=== PATIENT | male | born 1970 | race Caucasian/White ===

== ENCOUNTER 2016-11-26 21:47 | Observation (INO) | payer MEDICAID ==
--- NOTE | ~2016-11-26 | HP ---
History And Physical [facility] [address] [facility] [place]. [address] NAME: NANCY KHAN : 72 STATUS : ADM Michelle PAT#: [id number] AGE: 46 ADM/REG DATE : 11/26/16 MR#: [id number] REPORT SERV DATE: 11/27/16 DICTATED BY: DATE: REPORT STATUS : Draft TRANSCRIBED BY: MODL DATE: 11/27/16 DATE OF ADMISSION: 11/26/2016 PRIMARY CARE PROVIDER: He denies having one. He reports he has moved to [place] within the last month. CHIEF COMPLAINT: Chest heaviness after a syncopal episode. HISTORY OF PRESENT ILLNESS: This is a 46-year-old white male with history of FL x2 which he reports was nonobstructive based on two cardiac cath, syncope that has started in the last six months, hypertension, hyperlipidemia, history of drug abuse and alcohol abuse. The patient reports to have had a syncopal event yesterday followed by chest pressure and pain that radiated to his left arm and shoulder. He reports the pain an 8/10. He reports the event lasted about a minute and he felt diaphoretic, nauseous, and short of breath during that time. He does report that he felt his heart racing prior to his syncopal event. He reports that his pain lessened but did not completely resolved until about 1 a.m. while here in the hospital. Currently, he reports mild pressure to his mid chest and mild dizziness, but he denies any chest pain, shortness of breath, palpitations, any orthopnea or edema. The patient denies any personal history of stroke, DVT, or pulmonary embolus. The patient denies any recent fevers or chills. PAST MEDICAL HISTORY: 1. Hypertension. 2. Hyperlipidemia. 3. FL in 2009 and 2011. He reports 40% blockages, no stents needed. 4. Syncopal events in the last six months in which he also develops a headache, has palpitations, and a 30-second dizziness prior to his syncopal event. PAST SURGICAL HISTORY: He reports, 1. Tonsillectomy. 2. 14 knee orthoscopies. 3. Right and left collar bone surgery. 4. Right hand surgery twice. SOCIAL HISTORY: He is a computer software support representative. He is and has one child. He denies any tobacco use. He does report to have drank tequila /5th everyday for 30 years. He quit in 2015 per medical detox. Illicit drug use, he reports he was on different toxic pain pills including Vicodin and came off it on his own in April of 2014, but had used it on and off for 30 years. FAMILY HISTORY: He is adopted and therefore does not know his family history. REVIEW OF SYSTEMS: 14-point review of systems was performed, significant for HPI. No other contributory diagnoses identified. History And Physical [address] [address] NAME: NANCY KHAN : 72 STATUS : ADM Michelle PAT#: [id number] AGE: 46 ADM/REG DATE : 11/26/16 MR#: [id number] REPORT SERV DATE: 11/27/16 DICTATED BY: DATE: REPORT STATUS : Draft TRANSCRIBED BY: STARR DATE: 11/27/16 ALLERGIES: NO KNOWN ALLERGIES. HOME MEDICATIONS: 1. Lisinopril 20 p.o. twice a day. 2. Zocor 40 p.o. at bedtime. 3. Metoprolol tartrate 50 p.o. twice a day. 4. Aspirin 81 mg every morning. 5. Naproxen 220 mg tablet. He takes 440 to 650 mg p.o. daily as needed for arthritis. PHYSICAL EXAMINATION: GENERAL: Cooperative, in no apparent distress. HEENT: Head normocephalic, anicteric. Normal EOM. PERRLA. No xanthelasma. Nares patent. Moist mucous membranes. NECK: Trachea midline. No thyromegaly, JVD or bruits. RESPIRATORY: Diminished lower lobes. Normal respiratory effort. No wheezes, rhonchi or crackles. CARDIOVASCULAR: Diminished heart sounds. No murmur, rub or gallop appreciated. No chest wall tenderness to palpation. ABDOMEN: Soft, nontender, nondistended, normal bowel sounds auscultated throughout. No masses or organomegaly. EXTREMITIES: No peripheral edema. DP/PT and radial pulses palpable bilaterally. No clubbing or cyanosis. SKIN: Warm, dry and intact. Normal turgor. No pallor or cyanosis. NEURO/PSYCH: Alert, oriented x3 with no acute distress. Affect appropriate to current situation. LAB DATA: Sodium 143, potassium 3.7, chloride 108, BUN 17, creatinine 1.15, GFR 89, glucose 156. The patient reports to have eaten at [place] prior to admit. Calcium 9.0, magnesium 2.1. White blood cells 10.5, hemoglobin 14.7, hematocrit 42.3, platelet count 200. INR 1.0. His troponins x3 have been less than 0.02. EKG shows sinus rhythm at 75. shelter monitor shows sinus rhythm at 78. No ectopy or any abnormalities noted. ASSESSMENT AND PLAN: 1. Chest pain. Troponins x3 negative, less than 0.02. He currently denies any chest pain. He did report no obstructive coronary artery disease per two COAs, last one in 2011 at [place], [place]. Denies a history of congestive heart failure. We will keep patient n.p.o. and plan a cardiac PET today. If the stress test is low risk or no ischemia, the patient may be discharged home. The patient will be asked to follow up with his PCP in one week with all studies being sent to that office. The patient reports he does not have a PCP, we will therefore assist him in getting one if he prefers. If anything suggestive of ischemia, Cardiology referral will be initiated. We will obtain records from the patient's backend developer in [place]. 2. History of myocardial infarction x2. Plan as same as above. 3. Syncope and palpitations. The telemetry was reviewed and no events were noted. No need for Holter at this time due to no events here. We will be awaiting records and stress test report. If the stress test is low risk, we will discharge home today and History And Physical [address] [address] NAME: NANCY KHAN : 72 STATUS : ADM Michelle PAT#: [id number] AGE: 46 ADM/REG DATE : 11/26/16 MR#: [id number] REPORT SERV DATE: 11/27/16 DICTATED BY: DATE: REPORT STATUS : Draft TRANSCRIBED BY: MODAmi DATE: 11/27/16 follow up with a PCP of his choice or we will make one if he prefers. 4. Hypertension. It appears stable. We will continue the patient's beta-varun and CAITLYN post stress test. 5. Hyperlipidemia. We will continue his statin. 6. Morbid obesity. BMI of 43.0. 7. History of drug and alcohol abuse. He reports he quit years ago. EKS/MODL Valdo Casas APN / [id number] CC: Lady Gonzalez, MSN, SOFTWARE RELEASE ENGINEER-BC
[2016-11-26 21:37] LABS: BASOPHILS 0.7 %; BASOPHILS ABSOLUTE 0.07 10/3/uL (0.0-0.16); EOSINOPHILS ABSOLUTE 0.63 10/3/uL (0.0-0.53); ER CBC TAT 0 Hrs 08 Mins; HEMATOCRIT 42.3 % (40.0-51.0); HEMOGLOBIN 14.7 g/dL (13.6-17.8); IMMATURE GRANULOCYTES 0.5 %; IMMATURE GRANULOCYTES ABSOLUTE 0.05 10/3/uL (0.0-0.11); LYMPHOCYTES 23.5 %; LYMPHOCYTES ABSOLUTE 2.46 10/3/uL (0.67-4.30); MEAN CORPUS HGB CONC 34.8 g/dL (32.0-36.0); MEAN CORPUSCULAR HEMOGLOB 28.8 pg (26.0-34.0); MEAN CORPUSCULAR VOLUME 82.8 fL (80-100); MONOCYTES 4.5 %; MONOCYTES ABSOLUTE 0.47 10/3/uL (0.21-1.20); NEUTROPHILS 64.8 %; NEUTROPHILS ABSOLUTE 6.77 10/3/uL (2.02-8.40); PLATELET COUNT 200 10/3/uL (150-400); RBC DISTRIBUTION WIDTH 12.1 % (12.0-16.0); RED CELL COUNT 5.11 10/6/uL (4.7-6.1); WHITE BLOOD CELLS 10.5 10/3/uL (4.5-10.5)
[2016-11-26 21:38] LABS: MANUAL DIFF NO %
[2016-11-26 21:48] LABS: PARTIAL THROMBO TIME 26.9 SEC (22.5-37.2); PROTIME (NOT ORD) 13.2 SEC (12.0-14.5)
[2016-11-26 21:54] LABS: BUN (BLOOD UREA NITROGEN) 17 MG/DL (6-23); CHEST PAIN PROFILE TAT 0 Hrs 25 Mins; CHLORIDE, SERUM 108 MMOL/L (96-112); CO2 (CARBON DIOXIDE) 30 MMOL/L (24-34); CREATININE 1.15 MG/DL (0.70-1.30); GFR AFRICAN AMERICAN 89 ML/MIN (>=60); GFR NON AFRICAN AMERICAN 76 ML/MIN (>=60); GLUCOSE, SERUM 156 MG/DL (60-99); POTASSIUM, SERUM 3.7 MMOL/L (3.5-5.3); SODIUM, SERUM 143 MMOL/L (135-148); TROPONIN I <0.02 NG/ML (<0.05)
[2016-11-26] MEDS ORDERED: PRIN20 PO (22:15)
[2016-11-26] MEDS ORDERED: LOP50 PO (22:15)
[2016-11-26] MEDS ORDERED: ZOCOR40 PO (22:15)
[2016-11-26] MEDS ORDERED: ASAB PO (22:15)
[2016-11-26] MEDS ORDERED: ASABAYER PO (22:16)
[2016-11-26] MEDS ORDERED: ALEVE220 MG PO (22:17)
[2016-11-28 05:05] LABS: BUN (BLOOD UREA NITROGEN) 19 MG/DL (6-23); CALCIUM, SERUM 8.7 MG/DL (8.5-10.4); CHLORIDE, SERUM 106 MMOL/L (96-112); CO2 (CARBON DIOXIDE) 27 MMOL/L (24-34); CREATININE 0.92 MG/DL (0.70-1.30); GFR AFRICAN AMERICAN 116 ML/MIN (>=60); GFR NON AFRICAN AMERICAN 100 ML/MIN (>=60); GLUCOSE, SERUM 134 MG/DL (60-99); SODIUM, SERUM 141 MMOL/L (135-148)
[2016-11-28 05:06] LABS: POTASSIUM, SERUM 3.9 MMOL/L (3.5-5.3)
== END 2016-11-28 14:55 | disposition home or self-care (01) ==
LOC: ER 21:47 → CDU1 22:18 → CDU2 23:21
PROVIDERS: Clinical Nurse Specialist; Emergency Medicine
DX: R07.89 Other chest pain (principal); R55 Syncope and collapse; R00.2 Palpitations; I10 Essential (primary) hypertension; E78.5 Hyperlipidemia, unspecified; E66.01 Morbid (severe) obesity due to excess calories; F10.10 Alcohol abuse, uncomplicated; I25.2 Old myocardial infarction; Z68.41 Body mass index [BMI] 40.0-44.9, adult; Z87.898 Personal history of other specified conditions; Z90.89 Acquired absence of other organs; Z98.890 Other specified postprocedural states
CPT/HCPCS: 71010; 78492; 80048; 83735; 84484; 85025; 85610; 85730; 93005; 93017; 96374; 96375; 96376; 99285; A9270-GY; A9555; G0378; J0360; J2405; J2785

== ENCOUNTER 2016-11-30 04:22 | Inpatient (IN) | payer MEDICAID ==
--- NOTE | ~2016-11-30 | ECH ---
Echocardiogram [facility] [address] [place]. [address] NAME: NANCY KHAN : 72 STATUS : ADM IN PAT#: [id number] AGE: 46 ADM/REG DATE : 11/30/16 MR#: [id number] REPORT SERV DATE: 12/02/16 DICTATED BY: MAGALI WALLACE JR. DATE: 12/01/16 REPORT STATUS : Draft TRANSCRIBED BY: STARR DATE: 12/01/16 DATE OF ACQUISITION: 11/30/2016. The bias cutting machine operator was Merritt Aguilar. INDICATIONS: Syncope. 2-D INTERPRETATION: M-mode and 2-dimensional echocardiography were performed. The left atrium was normal in size measuring 3.5 cm compared to an aortic root diameter of 3.5 cm. The left ventricle was in normal size, measuring 4.5 cm in end-diastole and 3 cm in end- systole. Overall, there appeared to be normal left ventricular systolic function without obvious segmental wall motion abnormality with ejection fraction of 50% to 55%. Definity contrast imaging agent was utilized to enhance endocardial borders. 20 mL of agitated sterile saline contrast was injected via the brachial vein, which opacified the right ventricle and right atrium. No flow was seen across the interatrial septum of significance. The aortic valve is trileaflet and the mitral valve appeared to be structurally normal. The remaining cardiac valves appeared to be structurally normal. No obvious pericardial or pleural effusion could be seen. No intracardiac mass could be identified. DOPPLER/COLOR FLOW: Conventional and Doppler color flow imaging were performed. Mitral inflow patterns were abnormal suggestive of grade 2 diastolic dysfunction. There was trace- to-mild mitral insufficiency. There was no tricuspid insufficiency. There was no evidence of aortic stenosis. There was [id number] aortic insufficiency. Neither significant stenosis or insufficiency of the remaining cardiac valves could be visualized. CONCLUSION: NORMAL LEFT VENTRICULAR SYSTOLIC FUNCTION WITH DIASTOLIC DYSFUNCTION GRADE 2, PHYSIOLOGIC TO MILD MITRAL INSUFFICIENCY. NO TRICUSPID INSUFFICIENCY. MILD AORTIC INSUFFICIENCY. NEGATIVE ECHO CONTRAST BUBBLE STUDY. /STARR Magali Wallace Jr., M.D. / [id number] CC: Kristin Dunbar M.D.
--- NOTE | ~2016-11-30 | DS ---
Discharge Summary [facility] [address] [place]. [address] NAME: NANCY KHAN : 72 STATUS : DIS IN PAT#: [id number] AGE: 46 ADM/REG DATE : 11/30/16 MR#: [id number] REPORT SERV DATE: 12/03/16 DICTATED BY: MYRA ESPINOZA DATE: 12/02/16 REPORT STATUS : Draft TRANSCRIBED BY: MODL DATE: 12/02/16 ADMISSION DATE: 11/30/2016 DISCHARGE DATE: 12/02/2016 CONDITION ON DISCHARGE: Stable. DISPOSITION: Discharged to home. ADVICE ON DISCHARGE: Is for patient to follow up with outpatient Neurology, Dr. Pierce, within the next three to four weeks. The patient has been advised not to drive and also not to operate heavy machinery until seen by Neurology. DIAGNOSIS UPON DISCHARGE: Include the followin. Recurrent syncopal episodes - the patient has not had a cardiac arrhythmic event, hence this could be secondary to narcolepsy. This could be also secondary to atypical migraine/partial seizures, for which, our neurologist here, Dr. Beckie Chu, has evaluated the patient and suggested that he be on Topamax for this. 2. Morbid obesity. 3. Hypertension. This is fairly well controlled. However, the patient is being taken off the metoprolol that he takes at home and continued on lisinopril 20 mg twice a day that he takes at home. The patient will continue aspirin and statin along with this lisinopril and also takes Norvasc 10 mg at nighttime for better control of blood pressure without affecting the heart rate. BRIEF HOSPITAL COURSE: Mr. Khan is a pleasant 46-year-old gentleman who was admitted with episodes of recurrent syncope. The patient has been in the hospital multiple times before for the same reason. A recent cardiac stress test was negative. therapeutic specialist has not shown any arrhythmic event while he is being hospitalized, so this time he was admitted, and a neurology consult was obtained. A CT scan of the brain came back negative for any acute stroke. The patient underwent EEG that was read by our neurologist, and even though no definitive epileptiform activity was seen, it was suspicious for maybe atypical migraines. Hence, the neurologist felt that the patient could go on Topamax which would help with any partial seizures if any also. Hence, he is being sent home on Topamax 25 mg once a day for seven days, 25 mg twice a day for seven days after that and 50 mg twice a day for two weeks after that, so a 28-day supply of the Topamax. After that he will follow up with outpatient Neurology. The patient also will follow up with Sleep Studies as an outpatient so that he can be diagnosed and treated for sleep apnea if any. The outpatient neurology consult should also evaluate for narcolepsy and be able to help the patient with that also. For now, the patient's blood pressure medicines will be continued except for the metoprolol that he takes at home as we would like to keep him on a blood pressure medicine that will not affect his heart rate. Hence, he will continue lisinopril Discharge Summary [address] [place]. [address] NAME: NANCY KHAN : 72 STATUS : DIS IN PAT#: [id number] AGE: 46 ADM/REG DATE : 11/30/16 MR#: [id number] REPORT SERV DATE: 12/03/16 DICTATED BY: MYRA ESPINOZA DATE: 12/02/16 REPORT STATUS : Draft TRANSCRIBED BY: STARR DATE: 12/02/16 20 mg twice a day, continue his Zocor 40 mg once a day, aspirin 81 mg once a day, and take Norvasc 10 mg p.o. at bedtime, which is a new medicine. I have given him a 30 day supply for this. Labs at the time of discharge show the following: On 12/01/2016, the patient had a sodium of 139, potassium of 3.6, BUN of 21, creatinine of 0.9. CBC shows a WBC count of 8.9, hemoglobin 15.6, hematocrit 44.1, and platelet count of 193. Troponin I was less than 0.02. Again, this time, TSH is normal. Hence, his labs are pretty much normal, so he is being sent home in stable condition. I have spent about 35 to 40 minutes in coordinating discharge care of this patient including [id number] encounter, med reconciliation, and summarizing this discharge. RRA/MODL Myra Espinoza M.D. / [id number] CC: Myra Espinoza M.D.
--- NOTE | ~2016-11-30 | CN ---
Consultation Report [facility] [address] [place]. [address] NAME: NANCY KHAN : 72 STATUS : ADM IN PAT#: [id number] AGE: 46 ADM/REG DATE : 11/30/16 MR#: [id number] REPORT SERV DATE: 11/30/16 DICTATED BY: MAGALI WALLACE JR. DATE: 11/30/16 REPORT STATUS : Draft TRANSCRIBED BY: STARR DATE: 11/30/16 CONSULTATION DATE OF CONSULTATION: 11/30/2016 REASON FOR CONSULTATION: Syncope. HISTORY OF PRESENT ILLNESS: The patient is a 46-year-old, white male with a history of morbid obesity, who has been evaluated for sleep apnea in the past and presents after his second admission for syncope with a fall twice. He denies any cataplexy or narcolepsy symptoms. He denies any prior history of sleeping disorder. He has continued to gain weight over the ensuing years. He takes only lisinopril and metoprolol at home and states that he is compliant with medications, although not with diet. He states that each episode has occurred with headache and blurry vision and then syncope. After he awakens, he notes vague headache but denies any other neurological changes. He notes occasional rare palpitations, but has had no "racing heart" or tachycardia with associated dyspnea. He notes no change in his exercise tolerance. Recent nuclear stress test performed two days ago noted normal rubidium infusion with normal SPECT MPI and no evidence of ischemia with post-stress ejection fraction of 53%, and no ECG changes consistent with ischemia. REVIEW OF SYSTEMS: A 10-point review of systems, otherwise, unremarkable. ALLERGIES: NONE KNOWN. MEDICATIONS: At home have included aspirin 81 mg daily, lisinopril 20 mg b.i.d., metoprolol 50 mg b.i.d., and simvastatin 40 mg at bedtime. PAST MEDICAL HISTORY: Notable for prior history of obesity, morphologically high risk for obstructive sleep apnea, hyperlipidemia, hypertension, history of chronic arthritis. PAST SURGICAL HISTORY: Notable for prior tonsillectomy, myocardial infarction with no noted PCI, prior knee surgeries, clavicular surgery and hand surgery. SOCIAL HISTORY: Notable for absence of known tobacco or ethanol use. FAMILY HISTORY: Notable for heart disease. PHYSICAL EXAMINATION: VITAL SIGNS: Blood pressure initially was 222/112 mmHg, pulse was 73 and regular, respirations 14. The patient is afebrile. Now blood pressure is 190/70. HEENT: Unremarkable. NECK: Supple without jugular venous distention or carotid bruits. CARDIOVASCULAR SYSTEM: Regular rate and rhythm with bilateral wheezing. Consultation Report [place] [address] [place]. [address] NAME: NANCY KHAN : 72 STATUS : ADM IN PAT#: [id number] AGE: 46 ADM/REG DATE : 11/30/16 MR#: [id number] REPORT SERV DATE: 11/30/16 DICTATED BY: MAGALI WALLACE JR. DATE: 11/30/16 REPORT STATUS : Draft TRANSCRIBED BY: MODL DATE: 11/30/16 ABDOMEN: Benign without hepatomegaly. EXTREMITIES: 1+ with no evidence of pedal edema. NEUROLOGIC: He is grossly intact. LABORATORY DATA: EKG is notable for sinus rhythm, ventricular rate of 74 beats per minute, normal tracing. Other laboratories include sodium 141, potassium 3.6, chloride 105, CO2 of 29, BUN 16, creatinine 0.9, glucose 101, H and H 15.9 and 45.3. White count 10.9, platelet count 212,000. Magnesium 2.2. PTT of 26.9. Troponin less than 0.02. Chest x-ray, otherwise is unremarkable except for cardiomegaly and a CT is reported as negative. IMPRESSION: 1. 46-year-old, morbidly obese, white male with morphologically elevated risk for sleep apnea with hypertensive heart disease and recent normal perfusion scan. 2. Morbid obesity. 3. Syncope with hypertensive exacerbation. PLANS AND RECOMMENDATIONS: 1. Changed the CAITLYN inhibitor to ARB and hydrochlorothiazide. 2. Change the beta-varun to carvedilol. 3. Add dihydropyridine. 4. Dietitian. 5. Echocardiography pending. 6. EEG pending with further recommendations follow. LISA/STARR Magali Wallace Jr., M.D. / [id number] CC: Kristin Dunbar M.D.
--- NOTE | ~2016-11-30 | HP ---
History And Physical [place] [id number] [place]. [address] NAME: NANCY KHAN : 72 STATUS : ADM IN [facility]#: [id number] AGE: 46 ADM/REG DATE : 11/30/16 MR#: [id number] REPORT SERV DATE: 11/30/16 DICTATED BY: MYRA ESPINOZA DATE: 11/30/16 REPORT STATUS : Draft TRANSCRIBED BY: STARR DATE: 11/30/16 DATE OF ADMISSION: 11/30/2016 Mr. Khan is a 46-year-old male patient, who was recently discharged from the hospital on 11/28/2016, who came back this morning, which is 11/30/2016, because he had another attack of syncopal episode yesterday. The patient states that he realized that he had passed out and after a few minutes, he woke himself up and he realized that he had passed out. He states that he found that his dogs around him were trying to wake him up by licking his face and he woke up then. This time when he passed out yesterday, he said that there was nobody around him. The only thing he reports before this episode this time is that he did feel some palpitations in the chest area before this happened. The patient states that he had something to eat and drink, so, he does not think that this is related to low blood glucose levels. The patient states that he did not experience any chest pain or headaches or at this time did not even feel that he was about to pass out. He just woke himself up on the floor after a few minutes he states. HISTORY OF PRESENTING COMPLAINT: The patient has had several episodes of syncope in the last 6 months, at least 4 of them and during all episodes, the patient states that there are some episodes where he feels palpitations and he feels that he is about to pass out just a few seconds before and everything blacks out. There have been a few witnesses in the past because one time when he passed out, it was at a bookstore. The patient states that there was no reported seizure activity by people around him. As mentioned above, he was also recently admitted and discharged by Cardiology service on 11/28/2016, just 2 days ago. A cardiac workup at that time was negative. The patient did have a low risk stress test which prompted the denitrator operator to do a cardiac PET scan which also came back at low risk for ischemia. The patient himself however reports that he has had cardiac catheterization in the past with minimal blockages in coronary arteries. He apparently states that he had a 40% blockage in the coronary arteries. He is medically managed for this. At this time, the patient denies any chest pain, headache, or blurry vision. Does complain of a few wheezes but denies any shortness of breath per se. He denies any abdominal pain, nausea, vomiting, hematemesis, hematuria, or blood in stool. He denies any diarrhea or any other symptoms but he states that he is very concerned because of these recurrent episodes of him passing out like that. PAST MEDICAL HISTORY: Significant for hypertension, diffuse minimal coronary artery disease according to the patient, hyperlipidemia. The patient does take his blood pressure medicines on a regular basis and his statin and aspirin on a regular basis and is compliant. SOCIAL HISTORY: The patient does not smoke right now. Even though there is a history of alcohol abuse listed in the chart, the patient absolutely states that he has been clean and has not had any alcohol to drink for the last two years. The patient also has a history of illicit drug abuse but he states that he has been clean for the last three years and he is History And Physical [address] [address] NAME: NANCY KHAN : 72 STATUS : ADM IN [facility]#: [id number] AGE: 46 ADM/REG DATE : 11/30/16 MR#: [id number] REPORT SERV DATE: 11/30/16 DICTATED BY: MYRA ESPINOZA DATE: 11/30/16 REPORT STATUS : Draft TRANSCRIBED BY: MODL DATE: 11/30/16 not into any drugs now. He works as a computer assistant. FAMILY HISTORY: The patient is not aware of any family history as he is adopted. Medications that he takes and allergies include the following: His home medications are as follows: Aspirin 81 mg once a day; lisinopril 20 mg p.o. twice a day; Lopressor 50 mg p.o. twice a day; and Zocor 40 mg at bedtime. PHYSICAL EXAMINATION: GENERAL: On examination, the patient is alert, oriented, able to give his history himself and is not in any acute distress now. The patient is obese. VITAL SIGNS: His vital signs show that his blood pressure is elevated at 190/93. The patient is afebrile, pulse is 65 per minute, and O2 saturations 98% on room air. HEENT: Unremarkable. There is no facial droop or asymmetry. NECK: There is no JVD or thyromegaly. CARDIOVASCULAR SYSTEM: S1, S2 appreciated. Sinus rhythm. No murmurs, no rubs, or gallops noted. RESPIRATORY SYSTEM: Scattered wheezing noted especially in the left side of the lungs more than the right side of the chest. There are no rales noted. The patient is not short of breath and his breathing is not labored at all at this time. ABDOMEN: Morbidly obese, soft, nontender, and nondistended. No organomegaly noted. Bowel sounds are appreciated. EXTREMITIES: There is no pedal edema. Pedal pulses are well felt. NEUROLOGICAL: No focal deficits at this time. PSYCHIATRIC: Normal affect. MUSCULOSKELETAL EXAM: Grossly normal. LAB DATA: I do have the following results on this patient from today: His CBC shows a WBC count of 10.9, hemoglobin 15.9, hematocrit 45.3, and platelet count of 212. INR is normal at 1.0. Electrolytes show sodium 141, potassium 3.6, BUN 16, and creatinine 0.9. Glucose is mildly elevated at 101. Troponin I is less than 0.02. The patient also had a CT scan of the brain without contrast that is completely normal. ASSESSMENT: My assessment on this patient is 1. Recurrent episodes of syncope in a morbidly obese patient with risk factors that include hypertension, hyperlipidemia, and minimal diffuse coronary artery disease. At this time, I am not sure if this is related to any cardiac dysrhythmia. Hence, we will consult Cardiology to see if this candidate is a patient for an event monitor/loop recorder. 2. This recurrent syncopal episode even though not accompanied by any typical tonic-clonic movements-I am not sure if this is a partial complex seizure. Hence, we will get neurologist involved and we will also check an MRI of the brain with an MRA. Also at the same time, the patient may need an EEG to rule out seizure activity. The patient is morbidly obese and may have obstructive sleep apnea and narcolepsy but this will be investigated as an outpatient if all the above tests come back negative. We will admit the patient under my service for now and look out for specialists recommendations from History And Physical [address] [place]. [address] NAME: NANCY KHAN : 72 STATUS : ADM IN PAT#: [id number] AGE: 46 ADM/REG DATE : 11/30/16 MR#: [id number] REPORT SERV DATE: 11/30/16 DICTATED BY: MYRA ESPINOZA DATE: 11/30/16 REPORT STATUS : Draft TRANSCRIBED BY: MODL DATE: 11/30/16 Cardiology and Neurology standpoint. RRA/MODL Myra Espinoza M.D. / [id number] CC: Myra Espinoza M.D.
--- NOTE | ~2016-11-30 | EEG ---
Electroencephalogram [id number] [place]. [address] NAME: NANCY KHAN : 72 STATUS : ADM IN PAT#: [id number] AGE: 46 ADM/REG DATE : 11/30/16 MR#: [id number] REPORT SERV DATE: 11/30/16 DICTATED BY: BECKIE CHU DATE: 11/30/16 REPORT STATUS : Draft TRANSCRIBED BY: MODL DATE: 11/30/16 INTERPRETING PHYSICIAN: Beckie Chu MD, Neurology. AGE: 46. REASON FOR EEG: Recurrent syncope versus seizures, past history of myocardial infarction. 23 surface electrodes, 10-20 international placement was used. The patient was noted to be awake, drowsy, and asleep throughout the study. The background activity consisted of moderate voltage, relatively well-organized, 9-10 cycles per second located in the posterior head regions. This alpha range of activity attenuated well with the eye opening maneuvers. Photic stimulation was performed. During photic stimulation, increase of bilaterally synchronous, high voltage, and sharp in appearance waveforms were seen. No tonic-clonic activity was observed on the video monitoring, which was utilized. Low voltage sharp and spike activity was also seen in the anterior head regions. This activity was bilaterally synchronous, however, bilaterally synchronous sharp activity with suggestion of a spike was seen during drowsiness and light sleep. The shortness of the waveforms have been the result of superimposed low voltage fast activity over the slower frequencies. During stage 2 sleep bilaterally synchronous spindle activity was noted. The patient appeared to have a large amount of hypnagogic hypersynchrony prior to falling asleep. The patient's english faculty member showed sinus rhythm, ranging between 60 and 70 beats per minute. Phase reversal of the sharp activity was also observed in temporal regions synchronously, however, this phenomena was more prominent affecting the left frontal and temporal regions. IMPRESSION: BORDERLINE NORMAL EEG WITH INCREASE OF LOW VOLTAGE SHARP ACTIVITY IS SEEN DURING DROWSINESS AND SLEEP. NO SUSTAINED PAROXYSMAL EPILEPTIFORM ACTIVITY WAS SEEN DURING THIS STUDY. THE AROUSAL PATTERN FROM LIGHT SLEEP APPEARED WITHIN NORMAL RANGE. K COMPLEXES WERE BILATERALLY SYNCHRONOUS AND WITHIN NORMAL RANGE. ABOVE DESCRIBED PATTERN CAN BE SEEN IN PATIENTS WITH MIGRAINE HEADACHES AND IN PATIENTS WITH SEIZURE DISORDER. LOW-VOLTAGE BETA RANGE ACTIVITY MAY REPRESENT MEDICATION EFFECT. HYPERSYNCHRONY OR FAST ACTIVITY DURING PHOTIC STIMULATION MAY REPRESENT PSEUDO-PHOTOCONVULSIVE RESPONSE AND IS AT TIMES SEEN IN PATIENTS WITHDRAWING FROM DRUGS OR ALCOHOL. COMMENT: The patient has history of recurrent syncopal episodes. Neurological followup is recommended. PATIENT'S LOCATION: Room #5125. SHEBA/STARR Beckie Chu MD / [id number] Electroencephalogram [address] [address] NAME: NANCY KHAN : 72 STATUS : ADM IN [facility]#: [id number] AGE: 46 ADM/REG DATE : 11/30/16 MR#: [id number] REPORT SERV DATE: 11/30/16 DICTATED BY: BECKIE CHU DATE: 11/30/16 REPORT STATUS : Draft TRANSCRIBED BY: STARR DATE: 11/30/16 CC: Kristin Dunbar M.D.
--- NOTE | ~2016-11-30 | CN ---
Consultation Report [facility] [address] [place]. [address] NAME: NANCY KHAN : 72 STATUS : ADM IN PAT#: [id number] AGE: 46 ADM/REG DATE : 11/30/16 MR#: [id number] REPORT SERV DATE: 11/30/16 DICTATED BY: BECKIE CHU DATE: 11/30/16 REPORT STATUS : Draft TRANSCRIBED BY: STARR DATE: 11/30/16 NEUROLOGICAL CONSULTATION DATE OF CONSULTATION: 11/30/2016 REQUESTING PHYSICIAN: Kristin Dunbar M.D. REASON FOR NEUROLOGICAL EVALUATION: Recurrent syncope associated with the headache past medical. HISTORY OF PRESENT ILLNESS: This is a 46-year-old, white male, with known history of previous myocardial infarctions x2, history of morbid obesity, past history of drug, and alcohol abuse, with no recent recurrence of use of drugs, who presented to the emergency room with episodes of syncope which occurred last night. These episode was followed by chest pressure and pain radiating to his left arm and left shoulder. The pain was described to be quite severe. At that time, the patient was feeling diaphoretic and nauseous. He has no recollection of how long the episode of syncope lasted. The patient stated he has had episodes of syncope in the last six months. Some of the episodes are associated with the headache, which patient describes as frontal, pounding in quality, associated with nausea. The patient denied having any vomiting preceding or following the episode. Some of the episodes of syncope preceded by palpitations-heart racing. The patient denied having episodes of tonic or clonic activity, and any history of confusion following these episodes, and no tongue biting or urinary incontinence was described. 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 The patient stated he has had recurrent headaches since the time of his concussion, described them as alleviated with over-the- counter medications, frequency of two per week. In the past the patient had history of narcotic abuse, which the patient has not done since 2013. PAST MEDICAL HISTORY: Significant history of myocardial infarction in 2009 and 2011, history of hypertension, morbid obesity, hyperlipidemia. PAST SURGICAL HISTORY: History of right hand surgery, left collarbone surgery, knee arthroscopy, and history of tonsillectomy. 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 Denied smoking. Denied use of alcohol at this time, although, he used to drink up to 1/5 of Tequila every day for 30 years. The patient stopped in 2013. FAMILY HISTORY: The patient was adopted, however, upon further questioning if had any contact with his biological parents, he stated that he met his biological mother twice, she at age 50, she was mildly obese. The patient has no knowledge of other history related to his parents. He has a biological sister who lives in [place], he has no contact Consultation Report [id number] [facility] [place]. [address] NAME: NANCY KHAN : 72 STATUS : ADM IN [facility]#: [id number] AGE: 46 ADM/REG DATE : 11/30/16 MR#: [id number] REPORT SERV DATE: 11/30/16 DICTATED BY: BECKIE CHU DATE: 11/30/16 REPORT STATUS : Draft TRANSCRIBED BY: STARR DATE: 11/30/16 with his biological sister. REVIEW OF SYSTEMS: On 14-point review of system, the patient denied having history of seizures, his headaches as described above, history of head trauma as described above. Denied difficulty with his vision, chewing, or swallowing. Denied weakness or numbness involving his face or extremities. Denied having shortness of breath. The patient stated that he was tested for obstructive sleep apnea, does not remember the results, this was done six years ago, his weight at that time was 280. The patient admitted to snoring at night, however, has no other information related to his past workup for obstructive sleep apnea. The patient stated that he works at home and occasionally takes naps during the day. MEDICATIONS: Prior to admission included aspirin 81 mg, lisinopril 20 mg p.o. daily, metoprolol 50 mg p.o. b.i.d., simvastatin, and Zocor 40 mg p.o. daily. PHYSICAL EXAMINATION: GENERAL: The patient was alert, cooperative, and did not appear in acute distress. He appeared morbidly obese. VITAL SIGNS: His weight was 137.04 kilos BMI of 43 his actual weight was 302 pounds, so I am not sure the calculation of 137 kilos is correct, blood pressure was 190/93, pulse was 65, respirations 18, temperature was 98, oxygen saturation 98%. HEAD AND NECK: Examination showed him to be normocephalic. There was no evidence of trauma. Auscultation of the neck showed no evidence of bruits. Eye exam sclerae were not icteric. Conjunctiva was pink. ENT exam, airway was small, Mallampati class 3 to 4. No JVD, no thyromegaly detected. CHEST: Symmetrical. LUNGS: Clear to auscultation. HEART: Regular S1 and S2. I did not appreciate any murmurs or rubs. ABDOMEN: Obese, soft, and nontender. No organomegaly. EXTREMITIES: Show no clubbing or cyanosis. There is no peripheral edema. Peripheral pulses were intact. SKIN: Clear. NEUROLOGIC: Mental status exam: The patient was alert, oriented to self, time, and place. His speech was fluent. There was no evidence of aphasia or dysarthria. No significant memory deficits were noted on testing of short or long-term memory. His affect and mood were appropriate. The patient had a good insight into his situation. Cranial nerve examination: 2 through 12. Visual franz on confrontation were intact. Funduscopic exam showed no evidence of papilledema, hemorrhages, or exudates. Pupils were 3 mm, equal, round, reactive to light and accommodation. Extraocular movements were full. There was no nystagmus. No limitation of upward or downward gaze was noted. There was no internuclear ophthalmoplegia. Facial sensation, muscles of mastication, and muscles of facial expression show no evidence of asymmetry or weakness. Lower cranial nerves were intact. Tongue was midline. No atrophy or fibrillations were noted. Palate elevated symmetrically. Sternocleidomastoid and trapezius muscles were normal. Motor exam: Muscle, bulk, and tone appeared within normal range. Strength was 5/5 Consultation Report [address] [place] [facility] [place]. [address] NAME: NANCY KHAN Marcellus : 72 STATUS : ADM IN [facility]#: [id number] AGE: 46 ADM/REG DATE : 11/30/16 MR#: [id number] REPORT SERV DATE: 11/30/16 DICTATED BY: BECKIE CHU DATE: 11/30/16 REPORT STATUS : Draft TRANSCRIBED BY: STARR DATE: 11/30/16 throughout. Deep tendon reflexes were symmetrical except absent knee jerks. Ankle jerks were preserved. Babinski signs were not elicitable. Sensory exam showed questionable decrease in sensation distally to temperature in both lower extremities in a stocking distribution. No deficits were noted on upper extremities. Cerebellar exam, finger-to- nose, nfud-lv-[id number], rapid alternating movements show no evidence of abnormalities. No ataxia noted. Gait was normal. LABORATORY STUDIES: Sodium 141, potassium 3.9, chloride 106, carbon dioxide 27, BUN 19, creatinine 0.92, global filtration rate over 100, glucose 134, WBC count 10.5, hemoglobin 14.7, hematocrit 42.3, MCV 82, platelet count 200,000, neutrophils 64.8, lymphocytes 23.5, monocytes 4.5, eosinophil 0.63, and PTT 26.9. CT of the head was normal, no abnormalities were seen on my inspection. Chest x-ray likewise was normal. IMPRESSION AND RECOMMENDATIONS: 1. Recurrent episodes of syncope associated with headache, nausea, and occasional palpitation, rule out cardiac arrhythmias, recurrent atrial fibrillation, or other arrhythmias. The patient has a history of myocardial infarction x2. The patient is being evaluated by Cardiology. I recommended a loop recorder to catch cardiac arrhythmias and/or atrial fibrillation. 2. Probable recurrent migraine headaches associated with a typical description of pounding headache, nausea, alleviated by byla-ucc-drcasrh medications. 3. Remote history of head trauma which can be a trigger for recurrent migraines. 4. Rule out recurrent seizures-atonic seizures. 5. Probable obstructive sleep apnea with episodes of daytime hypersomnolence or "mini sleep" that at times is mistaken by the patient's for a passing out spell. 6. Doubt presence of narcolepsy, the patient does not described the episodes as fitting the description, there is no description of cataplexy. 7. Morbid obesity. 8. The patient has an increased risk of stroke in view of his past history of myocardial infarction, hypertension, obesity, probably obstructive sleep apnea, and hyperlipidemia. I recommend an EEG which was partially reviewed by me and it shows episodes of sharp activity not infrequently seen in some migraine patient's, however, the patient may require an outpatient ambulatory EEG 48 to 72 hours recording to determine whether the patient may have episodes of seizures. 9. Outpatient polysomnography study. 10.Outpatient Neurology followup for treatment of possible migraines or seizures. 11.The patient should not be driving or operating heavy moving machinery, climbing heights, ladders, and in general follow seizure precautions, in view of the fact that it may endanger his life and lives of other people if the patient has a syncopal episode performing any of the above-mentioned activities. Laboratory studies should include thyroid function profile, TSH, serum drug screen. Vitamin B12 and folate level in view of the finding on the physical examination there was decrease in sensory modalities in distal legs. 12.The patient does not have knowledge of his family medical history. He was encouraged to get in touch with his biological sister to obtain additional information concerning Consultation Report [address] [place]. [address] NAME: NANCY KHAN : 72 STATUS : ADM IN [facility]#: [id number] AGE: 46 ADM/REG DATE : 11/30/16 MR#: [id number] REPORT SERV DATE: 11/30/16 DICTATED BY: BECKIE CHU DATE: 11/30/16 REPORT STATUS : Draft TRANSCRIBED BY: STARR DATE: 11/30/16 his families genetic makeup and/or disease. Thank you for allowing us to participate in this patient's care. SHEBA/STARR Beckie Chu MD / [id number] CC: Kristin Dunbar M.D.
[2016-11-30 03:26] LABS: BASOPHILS 0.5 %; BASOPHILS ABSOLUTE 0.05 10/3/uL (0.0-0.16); EOSINOPHILS 4.4 %; EOSINOPHILS ABSOLUTE 0.48 10/3/uL (0.0-0.53); ER CBC TAT 0 Hrs 10 Mins; HEMATOCRIT 45.3 % (40.0-51.0); HEMOGLOBIN 15.9 g/dL (13.6-17.8); IMMATURE GRANULOCYTES 0.5 %; IMMATURE GRANULOCYTES ABSOLUTE 0.05 10/3/uL (0.0-0.11); LYMPHOCYTES 29.4 %; LYMPHOCYTES ABSOLUTE 3.19 10/3/uL (0.67-4.30); MANUAL DIFF NO %; MEAN CORPUS HGB CONC 35.1 g/dL (32.0-36.0); MEAN CORPUSCULAR HEMOGLOB 29.3 pg (26.0-34.0); MEAN CORPUSCULAR VOLUME 83.4 fL (80-100); MEAN PLATELET VOLUME 9.2 fL (9.2-13.0); MONOCYTES 6.1 %; MONOCYTES ABSOLUTE 0.66 10/3/uL (0.21-1.20); NEUTROPHILS 59.1 %; NEUTROPHILS ABSOLUTE 6.42 10/3/uL (2.02-8.40); PLATELET COUNT 212 10/3/uL (150-400); RBC DISTRIBUTION WIDTH 11.8 % (12.0-16.0); RED CELL COUNT 5.43 10/6/uL (4.7-6.1); WHITE BLOOD CELLS 10.9 10/3/uL (4.5-10.5)
[2016-11-30 03:32] LABS: PROTIME (NOT ORD) 12.7 SEC (12.0-14.5)
[2016-11-30 03:33] LABS: PARTIAL THROMBO TIME 26.9 SEC (22.5-37.2)
[2016-11-30 03:46] LABS: BUN (BLOOD UREA NITROGEN) 16 MG/DL (6-23); CALCIUM, SERUM 9.3 MG/DL (8.5-10.4); CHEST PAIN PROFILE TAT 0 Hrs 30 Mins; CHLORIDE, SERUM 105 MMOL/L (96-112); CO2 (CARBON DIOXIDE) 29 MMOL/L (24-34); CREATININE 0.92 MG/DL (0.70-1.30); GFR AFRICAN AMERICAN 116 ML/MIN (>=60); GFR NON AFRICAN AMERICAN 100 ML/MIN (>=60); GLUCOSE, SERUM 101 MG/DL (60-99); POTASSIUM, SERUM 3.6 MMOL/L (3.5-5.3); SODIUM, SERUM 141 MMOL/L (135-148); TROPONIN I <0.02 NG/ML (<0.05)
[~2016-11-30 04:22] MED LIST: ALEVE220 MG PO; ASAB PO; ASABAYER PO; LOP50 PO; PRIN20 PO; ZOCOR40 PO
[2016-11-30] MEDS ORDERED: ASAB PO (04:53)
[2016-11-30] MEDS ORDERED: LOP50 PO (04:54)
[2016-11-30] MEDS ORDERED: PRIN20 PO (04:54)
[2016-11-30] MEDS ORDERED: ZOCOR40 PO (04:55)
[2016-11-30 12:07] LABS: PROCALCITONIN <0.05 ng/mL (<0.5)
[2016-11-30 17:32] LABS: ASCORBIC ACID (UR NOT ORDER) NEG (NEG); BILIRUBIN, URINE NEGATIVE (NEG); KETONE, URINE NEGATIVE (NEG); LEUKOCYTE ESTERASE(NOT OR NEG (NEG); WBC (NOT ORDERED) (RFLEX) < 1 (0-5)
[2016-11-30 17:49] LABS: AMPHETAMINES (NOT ORD) NEG (NEG); BARBITURATES (NOT ORDERED NEG (NEG); BENZODIAZEPINES (NOT ORD) NEG (NEG); CANNABINOIDS (THC) NEG (NEG); COCAINE (NOT ORDERED) NEG (NEG); OPIATES NEG (NEG); PHENCYCLIDINE(PCP) NEG (NEG); TRICYCLICS NEG (NEG)
[2016-12-01 06:35] LABS: BASOPHILS 0.9 %; BASOPHILS ABSOLUTE 0.08 10/3/uL (0.0-0.16); EOSINOPHILS 5.6 %; HEMATOCRIT 44.1 % (40.0-51.0); HEMOGLOBIN 15.6 g/dL (13.6-17.8); IMMATURE GRANULOCYTES 0.4 %; IMMATURE GRANULOCYTES ABSOLUTE 0.04 10/3/uL (0.0-0.11); LYMPHOCYTES 28.3 %; LYMPHOCYTES ABSOLUTE 2.53 10/3/uL (0.67-4.30); MEAN CORPUS HGB CONC 35.4 g/dL (32.0-36.0); MEAN CORPUSCULAR HEMOGLOB 29.2 pg (26.0-34.0); MEAN CORPUSCULAR VOLUME 82.4 fL (80-100); MEAN PLATELET VOLUME 9.3 fL (9.2-13.0); MONOCYTES 5.8 %; MONOCYTES ABSOLUTE 0.52 10/3/uL (0.21-1.20); NEUTROPHILS ABSOLUTE 5.27 10/3/uL (2.02-8.40); PLATELET COUNT 193 10/3/uL (150-400); RBC DISTRIBUTION WIDTH 12.1 % (12.0-16.0); RED CELL COUNT 5.35 10/6/uL (4.7-6.1); WHITE BLOOD CELLS 8.9 10/3/uL (4.5-10.5)
[2016-12-01 06:36] LABS: MANUAL DIFF NO %
[2016-12-01 06:56] LABS: A/G RATIO 0.9 (0.7-1.9); ALBUMIN 3.4 G/DL (3.5-5.0); ALKALINE PHOSPHATASE 112 U/L (45-117); BUN (BLOOD UREA NITROGEN) 21 MG/DL (6-23); CALCIUM, SERUM 8.7 MG/DL (8.5-10.4); CHLORIDE, SERUM 104 MMOL/L (96-112); CO2 (CARBON DIOXIDE) 31 MMOL/L (24-34); CREATININE 0.96 MG/DL (0.70-1.30); GFR AFRICAN AMERICAN 110 ML/MIN (>=60); GFR NON AFRICAN AMERICAN 95 ML/MIN (>=60); GLOBULIN 3.6 G/DL (2.5-4.1); GLUCOSE, SERUM 128 MG/DL (60-99); POTASSIUM, SERUM 3.6 MMOL/L (3.5-5.3); SGOT(AST) 15 U/L (5-40); SGPT(ALT) 26 U/L (5-65); SODIUM, SERUM 139 MMOL/L (135-148); TOTAL BILIRUBIN 0.9 MG/DL (0-1.2)
[2016-12-02] MEDS ORDERED: NORV10 PO (13:06)
[2016-12-02] MEDS ORDERED: TOPAMAX25 (13:07)
[2016-12-02] MEDS ORDERED: LIPITOR40 PO (13:10)
[2016-12-02] MEDS ORDERED: COREG25 PO (13:10)
[2016-12-02] MEDS ORDERED: HYZAAR 100/25 T1 TAB PO (13:11)
[2016-12-02] MEDS ORDERED: KLOR-CON20 MEQ PO (13:13)
[2016-12-02] MEDS ORDERED: MAGOX4 PO (13:14)
== END 2016-12-02 15:23 | disposition home or self-care (01) | DRG 103 ==
LOC: ER 04:22 → 5NO 09:29
PROVIDERS: Nurse Practitioner
DX: G43.909 Migraine, unspecified, not intractable, without status migrainosus (principal); Z68.41 Body mass index [BMI] 40.0-44.9, adult; I10 Essential (primary) hypertension; E66.01 Morbid (severe) obesity due to excess calories; I25.10 Atherosclerotic heart disease of native coronary artery without angina pectoris; E78.5 Hyperlipidemia, unspecified; Z79.82 Long term (current) use of aspirin; G47.33 Obstructive sleep apnea (adult) (pediatric)
CPT/HCPCS: 70450; 70544; 70547; 70551; 71020; 80048; 80053; 80305; 81001; 82088; 82533; 82962; 83735; 84145; 84443; 84484; 85025; 85610; 85730; 87040; 93005; 94640; 95819; 99285; A9270-GY; C8929; Q9957